=== PATIENT | male | born 1985 | race Caucasian/White ===

== ENCOUNTER 2017-10-07 01:00 | Emergency (ER) | payer MEDICARE, OTHER, MEDICAID, SELFPAY ==
[2017-10-07 01:01] VITALS: BP 159/105; PULSE 117; RESP 22; TEMP 37.2; O2SAT 95; BMI 33.6
[2017-10-07 01:42] VITALS: BP 138/84; BP 138/86; BP 151/92; PULSE 112; PULSE 119; PULSE 125
[2017-10-07] MEDS: 0.9% Normal Saline 1,000 ML 1000 ML IV (01:52)
[2017-10-07 02:05] LABS: Absolute Lymphocyte Count 3.77 X10^3/ul (0.83-4.51); Absolute Neutrophil Count 6.6 X10^3/uL (2.0-7.7); Basophil# 0.03 X10^3/uL; Basophil% 0.3 % (0-1); Eosinophil# 0.44 X10^3/uL; Eosinophils% 3.7 % (0-5); Hematocrit 41.7 % (40-54); Hemoglobin 14.6 g/dl (13.0-16.5); Lymphocyte # 3.77 X10^3/ul (4.0); Mean Corpuscular Hgb 30.9 pg (27.0-32.0); Mean Corpuscular Volume 88.3 fL (80-94); Mean Platelet Vol. 9.1 fl (6.2-12.0); Monocyte# 0.87 X10^3/uL; Monocyte% 7.4 % (0-10); Neutrophil # 6.63 X10^3/uL (2.7-7.7); Neutrophil % 56.3 % (47-70); Platelet Count 318 K/mm3 (150-450); RBC Distribution Width CV 12.7 % (11.6-14.6); RBC Distribution Width SD 40.9 fl (35.1-43.9); Red Blood Count 4.72 M/mm3 (4.6-6.2); White Blood Count 11.8 K/mm3 (4.4-11.0)
[2017-10-07 02:06] LABS: POSITIVE COUNT NO; POSITIVE DIFFERENTIAL NO; POSITIVE MORPHOLOGY NO
[2017-10-07 02:13] LABS: Anion Gap 8 (5-15); BUN 14 mg/dL (7-18); BUN/Creat Ratio 14.4 RATIO (10-20); Chloride 105 mmol/L (98-107); Creatinine, Serum 0.97 mg/dL (0.70-1.30); EST Glomerular Filtration Rate 96 mL/min (>60); Est Glom Filt Rate - Afr Amer 116 mL/min (>60); Estimated Creatinine Clearance 96.86 ml/min; Glucose 147 mg/dL (74-106); Potassium 3.7 mmol/L (3.5-5.1); Sodium Level 141 mmol/L (136-145)
--- NOTE | 2017-10-07 02:21 | EKG12_ITS ---
Test Reason : ANXIETY Blood Pressure : / mmHG Vent. Rate : 097 BPM Atrial Rate : 097 BPM P-R Int : 134 ms QRS Dur : 092 ms QT Int : 344 ms P-R-T Axes : 056 078 032 degrees QTc Int : 436 ms Normal sinus rhythm Normal ECG Confirmed by KIMBERLY TOMLIN, BAYLEE ([id number]), acquisitions editor ELLE SALVADOR ([id number] on 10/09/2017 1:38:12 PM Referred By: DEBI Confirmed By:BAYLEE HARRIS MD
--- NOTE | 2017-10-07 02:51 | ED.DCSUM_ITS ---
- ER Visit Summary Date of Service: 10/07/17 Chief Complaint: [Dizziness and near syncope] History of Present Illness: The patient is a 32 M [presents the emergency department complaint of dizziness this evening while in the hot shower. Patient states he began feeling lightheaded and feeling like he was in a pass out. Patient states that he worked in a hot environment today and did not drink enough water and believes that he may be dehydrated. Patient called EMS who brought him in and on arrival states he is feeling improved. Patient does have a history of anxiety and hypertension. Patient denies any chest pain or palpitations. He denies recent illness.] Physical Examination: [HEENT-PERRLA, EOMI. Cranial nerves II through XII grossly intact. TMs clear. Mucous membranes moist. No adenopathy. Cardiovascular-regular rate and rhythm without murmur or ectopy Lungs-clear to auscultation, chest wall stable without crepitus or subcu emphysema Abdomen-normoactive bowel sounds, soft, nontender, no rebound or rigidity, no peritoneal signs. Neuro axke-phaewl-hmfl and heel garcia testing within normal limits, negative Romberg, negative pronator drift, fundi benign. Hallpike maneuver was negative for nystagmus Extremities-intact ?4, normal range of motion, normal pulses, atraumatic] Test Results: [EKG obtained on arrival shows sinus rhythm with a ventricular rate of 97 bpm with no acute ST segment changes. CBC with differential obtained showed a white blood cell count 11.8, hemoglobin 14.6, hematocrit 42, platelets 318. Chemistries unremarkable. Orthostatic vital signs were negative.] Emergency Department Course and Treatment: [Patient was given a liter normal same fluid bolus. Patient's symptoms resolved.] Treatment Plan: [Patient advised to push fluids Disposition: [Discharged to home in stable condition] Impression: [Dizziness-etiology uncertain Near syncope] This note was generated with [employer] dictation software. It may contain incorrect words, spelling, and punctuation that were not noted in review of the chart prior to signing ED Disposition - Plan for ED Patient: Chief Complaint: Anxiety Referrals: Jonh Cox MD [Primary Care Provider] -
--- NOTE | 2017-10-07 02:51 | ED.DEP ---
ED Disposition - Plan for ED Patient: Chief Complaint: Anxiety Instructions: ED Near Syncope Unkn Referrals: Jonh Cox MD [Primary Care Provider] - 3-5 Days
[2017-10-07 02:53] VITALS: BP 156/82; PULSE 108; RESP 17; O2SAT 96
== END 2017-10-07 02:57 | disposition home or self-care (01) ==
PROVIDERS: Emergency Provider Emergency Medicine; Family Provider Family Medicine; PCP Family Medicine
DX: R42 Dizziness and giddiness (principal); R55 Syncope and collapse; I10 Essential (primary) hypertension; F41.9 Anxiety disorder, unspecified
CPT/HCPCS: 80048; 85025; 93005; 99285; J7030

== ENCOUNTER → 2018-11-16 13:29 | Outpatient (CLI) | payer MEDICARE, OTHER, MEDICAID, SELFPAY ==
[2018-11-16 15:03] LABS: Absolute Lymphocyte Count 2.43 X10^3/uL (0.83-4.51); Absolute Neutrophil Count 5.5 X10^3/uL (2.0-7.7); Basophil# 0.05 X10^3/uL; Basophil% 0.6 % (0-1); Eosinophil# 0.28 X10^3/uL; Eosinophils% 3.1 % (0-5); Hematocrit 46.6 % (40-54); Hemoglobin 15.6 g/dL (13.0-16.5); Lymphocyte # 2.43 X10^3/ul (4.0); Lymphocyte % 27.2 % (19-41); Mean Corp Hgb Conc 33.5 g/dL (32-36); Mean Corpuscular Hgb 30.1 pg (27.0-32.0); Mean Corpuscular Volume 89.8 fL (80-94); Mean Platelet Vol. 9.5 fl (6.2-12.0); Monocyte# 0.62 X10^3/uL; Monocyte% 6.9 % (0-10); NRBC Flagged by Analyzer 0 % (0-5); Neutrophil # 5.53 X10^3/uL (2.7-7.7); Neutrophil % 61.9 % (47-70); Platelet Count 329 K/mm3 (150-450); RBC Distribution Width CV 12.6 % (11.6-14.6); RBC Distribution Width SD 41.3 fl (35.1-43.9); Red Blood Count 5.19 M/mm3 (4.6-6.2); White Blood Count 8.9 K/mm3 (4.4-11.0)
[2018-11-16 15:40] LABS: Anion Gap 6 (5-15); BUN 18 mg/dL (7-18); BUN/Creat Ratio 15.8 RATIO (10-20); Calcium,Total 9.4 mg/dL (8.5-10.1); Chloride 107 mmol/L (98-107); Creatinine, Serum 1.14 mg/dL (0.70-1.30); EST Glomerular Filtration Rate 79 mL/min (>60); Est Glom Filt Rate - Afr Amer 96 mL/min (>60); Glucose 100 mg/dL (74-106); Potassium 3.9 mmol/L (3.5-5.1); Sodium Level 142 mmol/L (136-145); Thyroid Stim Hormone (TSH) 1.73 uIU/mL (0.358-3.74)
[2018-11-16 17:59] LABS: Microalbumin:Creatinine Ratio 271.6 mg/g CRE (<30 mg/g CRE)
== END ==
PROVIDERS: Family Provider Family Medicine; PCP Family Medicine; Visit Provider Family Medicine
DX: I10 Essential (primary) hypertension (principal); R73.01 Impaired fasting glucose
CPT/HCPCS: 36415; 80048; 82043; 82570; 84443; 85025

== ENCOUNTER → 2019-05-03 16:21 | Outpatient (CLI) | payer MEDICARE, OTHER, MEDICAID, SELFPAY ==
[2019-05-03 23:01] LABS: Microalbumin,Random Urine 25.3 mg/L (NO RANGE EST.); Microalbumin:Creatinine Ratio 13.5 mg/g CRE (<30 mg/g CRE)
== END ==
PROVIDERS: PCP Family Medicine; Visit Provider Family Medicine
DX: I10 Essential (primary) hypertension (principal); R80.9 Proteinuria, unspecified
CPT/HCPCS: 82043; 82570

== ENCOUNTER 2019-05-27 22:55 | Emergency (ER) | payer MEDICARE, OTHER, MEDICAID, SELFPAY ==
[2019-05-27 22:55] VITALS: BP 150/90; PULSE 120; RESP 16; TEMP 36.5; O2SAT 93; BMI 33.4
[2019-05-27] MEDS: 0.9% Normal Saline 1,000 ML 1000 ML IV (23:28)
[2019-05-27] MEDS: Ondansetron 4 MG/2 ML Vial IV (23:28)
[2019-05-27 23:29] LABS: Absolute Neutrophil Count 13.7 X10^3/uL (2.0-7.7); Basophil# 0.05 X10^3/uL; Basophil% 0.3 % (0-1); Eosinophils% 0.7 % (0-5); Hematocrit 47.3 % (40-54); Hemoglobin 15.8 g/dL (13.0-16.5); Lymphocyte % 4.6 % (19-41); Mean Corp Hgb Conc 33.4 g/dL (32-36); Mean Corpuscular Hgb 30.2 pg (27.0-32.0); Mean Corpuscular Volume 90.4 fL (80-94); Mean Platelet Vol. 8.9 fl (6.2-12.0); Monocyte# 0.81 X10^3/uL; Monocyte% 5.3 % (0-10); NRBC Flagged by Analyzer 0 % (0-5); Neutrophil # 13.65 X10^3/uL (2.7-7.7); Neutrophil % 88.8 % (47-70); Platelet Count 297 K/mm3 (150-450); RBC Distribution Width CV 12.8 % (11.6-14.6); RBC Distribution Width SD 42.1 fl (35.1-43.9); Red Blood Count 5.23 M/mm3 (4.6-6.2); White Blood Count 15.4 K/mm3 (4.4-11.0)
[2019-05-27 23:44] LABS: ALB/GLOB Ratio 1.1 RATIO (0.9-2.4); AST(SGOT) 44 U/L (15-37); Alanine Aminotransfer ALT/SGPT 86 U/L (16-61); Albumin, Serum 4.2 g/dL (3.2-5.0); Alkaline Phosphatase 78 U/L (45-117); Anion Gap 8 (5-15); BUN 18 mg/dL (7-18); BUN/Creat Ratio 15.1 RATIO (10-20); Calcium,Total 9.2 mg/dL (8.5-10.1); Chloride 109 mmol/L (98-107); Creatinine, Serum 1.19 mg/dL (0.70-1.30); EST Glomerular Filtration Rate 75 mL/min (>60); Est Glom Filt Rate - Afr Amer 91 mL/min (>60); Estimated Creatinine Clearance 78.24 ml/min; Globulin 3.8 g/dL (2.2-4.2); Glucose 167 mg/dL (74-106); Lipase 133 U/L (73-393); Potassium 4.1 mmol/L (3.5-5.1); Sodium Level 143 mmol/L (136-145)
--- NOTE | 2019-05-27 23:57 | ED.VISSUMM ---
- ER Visit Summary Date of Service: 05/27/19 Chief Complaint: Nausea, vomiting, and diarrhea History of Present Illness: The patient is a 33 M who presents with nausea, vomiting, and diarrhea that began today. Patient states he feels dehydrated from this. Patient states this started a few hours prior to arrival. Patient states he has cramping abdominal pain. Patient states it is diffuse. Patient states nothing makes it better or worse. Patient denies any hematemesis or coffee-ground emesis. Patient denies any diarrhea, melena, or hematochezia. Patient denies any dysuria or hematuria. Patient denies any chest pain or shortness of breath. Physical Examination: Vital signs are stable except for mild tachycardia of 120. Patient is afebrile. Patient is in no acute distress. Oral mucosa is pink and moist. Neck is supple. Trachea is midline. There is no JVD. Heart was regular and tachycardic. Lungs were clear and equal bilaterally. Abdomen is soft. Bowel sounds are normal. There is mild diffuse tenderness. There is no rebound or guarding noted. Cranial nerves II through XII are intact. There are no focal motor or sensory deficits noted. Test Results: CBC shows a mild leukocytosis of 15.4. Comprehensive metabolic profile was within normal limits. Emergency Department Course and Treatment: Patient was given IV fluids and Zofran here. Patient was feeling better on reevaluation. Patient was given a prescription for Zofran. Patient was instructed to start with a liquid diet and advance as tolerated. Patient understood and was agreeable with the plan. All questions were answered. Disposition: Discharge home Impression: Nausea vomiting diarrhea This note was generated with [employer] dictation software. It may contain incorrect words, spelling, and punctuation that were not noted in review of the chart prior to signing ED Disposition - Plan for ED Patient: Disposition: Home or Assisted Living Diagnosis: Nausea, vomiting, and diarrhea Instructions: VOMITING AND DIARRHEA, Nonspecific (Adult) Prescriptions: Ondansetron [Zofran Odt] 4 mg PO Q8H PRN PRN #10 tab PRN Reason: Nausea Prescription Printed Referrals: Jonh Cox MD [Primary Care Provider] - 3-5 Days
[2019-05-28 00:19] VITALS: RESP 16; O2SAT 97
[2019-05-28] MEDS: Ondansetron ODT 4 MG Tablet PO (00:39)
== END 2019-05-28 00:31 | disposition home or self-care (01) ==
PROVIDERS: Emergency Provider Emergency Medicine; PCP Family Medicine
DX: R11.2 Nausea with vomiting, unspecified (principal); R19.7 Diarrhea, unspecified; R10.9 Unspecified abdominal pain; E66.9 Obesity, unspecified; I10 Essential (primary) hypertension
CPT/HCPCS: 80053; 83690; 85025; 96361; 96374; 99283; J7030; A4216; J2405

== ENCOUNTER 2019-12-05 01:41 | Emergency (ER) | payer MEDICARE, OTHER, MEDICAID, SELFPAY ==
[2019-12-05 01:42] VITALS: BP 174/81; PULSE 118; RESP 20; TEMP 36.7; O2SAT 95; BMI 35.7
[2019-12-05] MEDS: Morphine 4 MG/ML Syringe IM (02:51)
[2019-12-05] MEDS: diazePAM 5 MG Tablet PO (02:51)
--- NOTE | 2019-12-05 03:45 | ED.VISSUMM ---
- ER Visit Summary Date of Service: 12/05/19 Chief Complaint: Back spasm History of Present Illness: The patient is a 34 M who presents with back spasms that became worse tonight. Patient has a history of cerebral palsy. Patient states he was bending forward and felt pain and spasm in his low back. Patient describes the pain as sharp. Patient states the pain is over his thoracic and lumbar spine. Patient states the pain is worse with certain movements. Patient states the pain improves somewhat with rest. Patient denies any radiation of the pain to his legs. Patient denies any bowel or bladder changes. Patient denies any paresthesias or weakness. Patient denies any saddle anesthesia. Physical Examination: Vital signs are stable. Patient is afebrile. Patient is in no acute distress. Musculoskeletal exam reveals tenderness and spasm of the lower lumbar paraspinal muscles. There is no midline tenderness. There is no bony crepitance or step-off. Range of motion was slightly limited in all motions of the lumbar spine secondary to pain. Strength is 5/5 bilateral in the lower extremities. There are no sensory deficits noted. Pedal pulses are equal bilaterally. Emergency Department Course and Treatment: Patient was given injection of morphine and a dose of oral Valium. Patient was feeling better on reevaluation. Patient was able to sit up without difficulty. Patient was instructed to use ice to the area. Patient was instructed to follow-up with his primary care physician in 5 to 7 days. Patient understood and was agreeable with the plan. All questions were answered. Disposition: Discharge home Impression: 1. Lumbar spasm This note was generated with [employer] dictation software. It may contain incorrect words, spelling, and punctuation that were not noted in review of the chart prior to signing ED Disposition - Plan for ED Patient: Disposition: Home or Assisted Living Diagnosis: Spasm of lumbar paraspinous muscle Instructions: ED Spasm Back No Trauma Referrals: Jonh Cox MD [Primary Care Provider] - 5-7 Days
== END 2019-12-05 04:04 | disposition home or self-care (01) ==
PROVIDERS: Emergency Provider Emergency Medicine; PCP Family Medicine
DX: M62.830 Muscle spasm of back (principal); G80.9 Cerebral palsy, unspecified
CPT/HCPCS: 96372; 99284

== ENCOUNTER → 2020-01-04 11:11 | Outpatient (CLI) | payer MEDICARE, MEDICAID, SELFPAY ==
[2019-12-05 01:42] VITALS: BMI 35.7
[2020-01-04 15:47] LABS: AST(SGOT) 38 U/L (15-37); Alanine Aminotransfer ALT/SGPT 85 U/L (16-61); Albumin, Serum 3.8 g/dL (3.2-5.0); Alkaline Phosphatase 74 U/L (45-117); Anion Gap 6 (5-15); BUN 14 mg/dL (7-18); BUN/Creat Ratio 16.2 RATIO (10-20); Calcium,Total 9.3 mg/dL (8.5-10.1); Chloride 106 mmol/L (98-107); Creatinine, Serum 0.86 mg/dL (0.70-1.30); EST Glomerular Filtration Rate 109 mL/min (>60); Est Glom Filt Rate - Afr Amer 131 mL/min (>60); Globulin 3.7 g/dL (2.2-4.2); Glucose 166 mg/dL (74-106); Potassium 3.6 mmol/L (3.5-5.1); Protein, Total 7.5 g/dL (6.4-8.2); Sodium Level 140 mmol/L (136-145)
== END ==
PROVIDERS: PCP Family Medicine; Visit Provider Family Medicine
DX: R74.01 Elevation of levels of liver transaminase levels (principal); I10 Essential (primary) hypertension
CPT/HCPCS: 36415; 80053

== ENCOUNTER 2022-01-25 00:33 | Emergency (ER) | payer MEDICARE, MEDICAID, SELFPAY ==
[2022-01-25 00:33] VITALS: BP 141/74; PULSE 131; RESP 18; TEMP 38.2; O2SAT 97; BMI 34.4
[2022-01-25 00:41] VITALS: RESP 17; O2SAT 98
[2022-01-25 02:23] VITALS: PULSE 122; RESP 20; RESP 28; O2SAT 96
[2022-01-25] MEDS: Ipratropium/Albuterol Sulfate 3 ML AMPUL.NEB INHALATION (02:23)
[2022-01-25] MEDS: Acetaminophen 325 MG Tablet 650 MG PO (02:43)
[2022-01-25] MEDS: LORazepam 2 MG/ML Syringe 1 MG IM (02:43)
[2022-01-25 02:47] VITALS: BP 135/90; PULSE 124; RESP 18; O2SAT 94
--- NOTE | 2022-01-25 02:55 | RAD_ITS ---
EXAM: XR CHEST, 2 VIEWS CLINICAL INDICATION: dyspnea TECHNIQUE: Frontal and lateral views of the chest. This report was created using [employer] report generation technology. COMPARISON: 01/27/2014. FINDINGS: LUNGS AND PLEURAL SPACES: Unremarkable. No consolidation or edema. No pneumothorax. No effusion. HEART: Unremarkable. Cardiac silhouette not enlarged. MEDIASTINUM: Central airways and mediastinal contour are unremarkable. BONES/JOINTS: Unremarkable. SOFT TISSUES: Unremarkable. RAD/Chest PA and Lateral IMPRESSION: No radiographic evidence of acute cardiopulmonary disease. Electronically Signed: Arian Velazquez MD at 3:12 EDT ,
--- NOTE | 2022-01-25 03:50 | EDS_ITS ---
HPI History of Present Illness Chief Complaint: Anxiety Narrative Narrative: Male with MRCP and anxiety. He states that he takes citalopram daily for this. He reports that he was getting ready for bed this evening when he began to feel short of breath and this concerned him and secondary to this he comes to the hospital for evaluation. He denies any history of lung disorder or need for supplemental oxygen and he denies any smoking or vaping. Patient also denies any chest pain associated with this [facility] Medical History (Updated 01/25/22 @ 03:[address] James Rivero, DO) Anxiety HTN (hypertension) Home Medications atenolol 50 mg-chlorthalidone 25 mg tablet 25 mg PO DAILY 01/27/14 [History Last Taken Unknown] escitalopram oxalate 5 mg tablet (Lexapro) 10 mg PO BID 01/27/14 [History Last Taken Unknown] pediatric multivit 22-vit D3 1,000 unit-vit K 800 mcg chewable tablet (Chewables Multivitamins-A,B,D,E,K,Zn) 1 ea PO DAILY 01/27/14 [History Last Taken Unknown] albuterol sulfate 90 mcg/actuation aerosol inhaler (Ventolin HFA) 2 puff inhalation Q4H PRN PRN Wheezing #1 device 01/25/22 [Rx Last Taken Unknown] prednisone 20 mg tablet 20 mg PO DAILY 5 days #5 tabs 01/25/22 [Rx Last Taken Unknown] Allergy/AdvReac Type Severity Reaction Status Date / Time No Known Allergies Allergy Verified 01/25/22 00:40 Social History Smoking Status: Never smoker [facility] ED Constitutional Constitutional ED: Denies chills or fever(s) ENT ENT ED: Reports rhinorrhea and sore throat Cardiovascular Cardiovascular: Denies chest pain Respiratory/Chest Respiratory/Chest: Reports cough and dyspnea Gastrointestinal Gastrointestinal: Denies abdominal pain, diarrhea, nausea or vomiting Genitourinary Genitourinary ED: Denies dysuria Musculoskeletal Musculoskeletal: Denies myalgias Integumentary Denies rash Neurologic Neurologic: Denies headache(s) Psychiatric Psychiatric: Reports anxiety Hematologic/Lymphatic Hematologic/Lymphatic: Denies easy bleeding or easy bruising EXAM Physical Exam Const Vital Signs: 01/25/22 00:33 01/25/22 00:41 01/25/22 00:41 Temperature 100.7 F H Temperature Source Oral Pulse Rate 131 H Respiratory Rate 18 17 Respiratory Effort Normal Non-Labored Respiratory Depth Respiratory Pattern Normal Blood Pressure 141/74 H Blood Pressure Mean 96 Pulse Ox 97 98 Oxygen Delivery Method Room Air Room Air 01/25/22 02:23 01/25/22 02:23 01/25/22 02:47 Temperature Temperature Source Pulse Rate 122 H 124 H Respiratory Rate 20 H 28 H 18 Respiratory Effort Normal Short of Breath Respiratory Depth Shallow Respiratory Pattern Normal Tachypnea Blood Pressure 135/90 H Blood Pressure Mean 105 Pulse Ox 96 94 Oxygen Delivery Method Room Air Room Air 01/25/22 04:02 Temperature 99.9 F H Temperature Source Pulse Rate 118 H Respiratory Rate 20 H Respiratory Effort Respiratory Depth Respiratory Pattern Blood Pressure 143/71 H Blood Pressure Mean Pulse Ox 97 Oxygen Delivery Method Positive well nourished, well developed and obese General Appearance ED: well developed Nutritional Appearance: obese HEENT Reports moist mucous membranes HEENT Narrative: No tongue or lip swelling no oral lesions or airway compromise noted. Patient has a hyperemic and boggy nasal mucosa with purulent discharge present. There is cobblestoning the posterior pharynx consistent with sinus drainage. Eyes PERRL and EOMs intact bilaterally Neck supple and no JVD Chest Wall palpation of chest normal Resp normal respiratory effort Resp Narrative: Breath sounds are slight diminished throughout with diffuse expiratory wheeze but otherwise no nasal flaring retractions tachypnea or accessory muscle use Cardio regular rhythm Rate: tachycardic GI normal to inspection, nondistended, normoactive bowel sounds, non-tender and non-distended Auscultation: normoactive bowel sounds Palpation: soft Extremity normal to inspection Extremity Narrative: No asymmetric edema no pitting edema negative Homans' sign bilaterally Neuro oriented x3 and CN's II-XII intact bilaterally Sensorium / Orientation: alert Psych mental status grossly normal Skin no rashes or lesions noted MDM MDM MDM Narrative Medical decision making narrative: Presented to the ER hypertensive but has a past medical history of this. He did have a low-grade fever and is tachycardic which can be related to the fever as well as his anxiety sensation. Because of his congestion shortness of breath cough and fever I concern for underlying infection so a chest x-ray with viral swabs were obtained. Viral swabs were negative and chest x-ray revealed no acute finding. He was given Ativan and breathing treatments and on reevaluation reported improvement of his symptoms. On physical exam his breath sounds were improved as well. At this time he does not have chest pain he does not have leg swelling or calf tenderness and therefore do not feel that there is any necessity to perform a CTA or D-dimer. I do feel that his shortness of breath is from a upper respiratory infection which was exacerbated by his anxiety. At this time as he does not have respiratory distress or need for supplemental oxygen and his x-ray does not reveal obvious infiltrate he can be treated symptomatically and discharged home Radiography Diagnostic Testing: Clinical Impression(s) from Imaging Studies Chest X-Ray 01/25/22 02:55 IMPRESSION: No radiographic evidence of acute cardiopulmonary disease. Electronically Signed: Arian Velazquez MD at 3:12 EDT , Chest x-ray as interpreted by the emergency medicine physician reveals no acute infiltrate pneumothorax or pleural effusion Discharge Plan Triage Chief Complaint: Anxiety ED Provider: James Rivero Dx/Rx/DC Orders Clinical Impression: Upper respiratory infection, viral, Pyrexia, Anxiety reaction Instructions: ED Fever Control (Adult), ED URI, Viral W/ Wheezing (Adult) Prescriptions: New prednisone 20 mg tablet 20 mg PO DAILY 5 Days Qty: 5 0RF albuterol sulfate [Ventolin HFA] 90 mcg/actuation HFA aerosol inhaler 2 puff inhalation Q4H PRN PRN (Reason: Wheezing) Qty: 1 0RF No Action atenolol-chlorthalidone 1 TAB tablet 25 mg PO DAILY escitalopram oxalate [Lexapro] 5 MG tablet 10 mg PO BID pediatric multivit 22-D3-vit K [Chewable Multivit-A,B,D,E,K,Zn] 1 EACH tablet,chewable 1 ea PO DAILY Primary Care Provider: Jonh Cox Referrals: Jonh Cox MD [Primary Care Provider] - Activity Restrictions/Additional Instructions: Please continue all of your previous medications as directed but add the once a day prednisone and the inhaler to help with your congestion and shortness of breath. Please take Tylenol to control your fever and if you have any further concerns or worsening of symptoms please return to the ER for repeat evaluation Disposition Disposition: Home, Self Care Discharge Date/Time: 01/25/22 04:02
[2022-01-25 04:02] VITALS: BP 143/71; PULSE 118; RESP 20; TEMP 37.7; O2SAT 97
== END 2022-01-25 04:02 | disposition home or self-care (01) ==
PROVIDERS: Emergency Provider Emergency Medicine; PCP Family Medicine; Visit Provider Emergency Medicine
DX: J06.9 Acute upper respiratory infection, unspecified (principal); R06.02 Shortness of breath; I10 Essential (primary) hypertension; F41.1 Generalized anxiety disorder
CPT/HCPCS: 71046; 87428; 94640; 99251; 99285; G0463